=== PATIENT | male | born 2000 | race Asian ===

== ENCOUNTER 2021-03-11 18:17 | Emergency (ER) | payer OTHER ==
[~2021-03-11] VITALS: Ht 170.2 cm; Wt 65.0 kg
[2021-03-11] MEDS ORDERED: IPRATROPIUM BROMIDE (0.02%) 0.5MG/2.5ML NEB HHN STA (18:24)
[2021-03-11] MEDS ORDERED: ALBUTEROL (0.083%) 2.5MG/3ML NEB HHN STA (18:24)
[2021-03-11] MEDS ORDERED: METHYLPREDNISOLONE SOD SUCC 125 MG/2 ML VIAL IM STA (18:24)
[2021-03-11] MEDS ORDERED: MAGNESIUM 2 G PREMIX 50 ML IV STA (18:51)
[2021-03-11] MEDS ORDERED: PRED10TA MT (20:38)
[2021-03-11] MEDS ORDERED: ALBU6.7H9 INH (20:38)
== END 2021-03-11 21:15 | disposition home or self-care (01) ==
LOC: ER 18:17
DX: J98.01 Acute bronchospasm (principal); F12.10 Cannabis abuse, uncomplicated
CPT/HCPCS: 71045; 94640; 96365; 96372; 99284; J2930; J3475; Z7610